=== PATIENT | male | born 1995 | race Caucasian/White ===

== ENCOUNTER 2017-05-30 14:00 | Emergency (ER) | payer BC ==
[~2017-05-30] VITALS: Ht 177.8 cm; Wt 63.6 kg
[~2017-05-30 14:00] MED LIST: NO HOME MEDICATIONS
[2017-05-30 14:03] VITALS: BP 142/83; PULSE 70; TEMP 98.4
[2017-05-30] MEDS ORDERED: AMOXICILLIN875 MG PO (14:45)
== END 2017-05-30 14:49 | disposition home or self-care (01) ==
LOC: COL.ER 14:00
DX: H92.01 Otalgia, right ear (principal); F17.210 Nicotine dependence, cigarettes, uncomplicated

== ENCOUNTER → 2021-03-26 | Outpatient (CLI) | payer BC ==
[~2021-03-26] MED LIST changes: +AMOXICILLIN875 MG PO; +ZOFRAN 4MG T4 MG/TAB PO
== END ==
LOC: COL.RAD 13:30
DX: Z01.818 Encounter for other preprocedural examination (principal); N18.5 Chronic kidney disease, stage 5; N26.1 Atrophy of kidney (terminal)